=== PATIENT | male | born 1965 | race Hispanic/Latino ===

== ENCOUNTER 2022-06-14 06:56 | Day surgery (SDC) | payer OTHER, MEDICARE ==
[2022-06-12 13:00] LABS: BASOPHILS % (AUTO) 0.5 % (0.0-5.0); HEMATOCRIT 40.2 % (42-54); LYMPHOCYTES % (AUTO) 21.8 % (21.0-51.0); MEAN CORPUSCULAR HEMOGLOBIN 25.9 pg (27.0-33.0); MEAN CORPUSCULAR HGB CONC 32.3 g/dL (32.0-36.0); MEAN CORPUSCULAR VOLUME 80.1 fL (79-99); MONOCYTES % (AUTO) 9.8 % (3.0-13.0); NEUTROPHILS % (AUTO) 63.5 % (40.0-77.0); PLATELET COUNT (AUTO) 195 K/uL (130-400); RED BLOOD CELL COUNT(AUTO) 5.02 MIL/uL (4.50-6.20); RED CELL DISTRIBUTION WIDTH 15.6 % (11.0-15.5); WHITE BLOOD COUNT (AUTO) 7.8 K/uL (4.8-10.8)
[2022-06-12 13:08] LABS: CREATININE 1.5 mg/dL (0.5-1.5); POTASSIUM 5.2 mmol/L (3.5-5.1)
[2022-06-12 13:11] LABS: INR 0.95 (0.85-1.15); PROTHROMBIN TIME 10.4 SEC (9.6-11.6)
[2022-06-12 13:12] LABS: PARTIAL THROMBOPLASTIN TIME 27.1 SEC (26.3-35.5)
[2022-06-13 10:14] VITALS: BP 138/73
[2022-06-14] VITALS (7 sets, daily range): BP systolic 111–132; BP diastolic 66–77
[~2022-06-14] VITALS: Ht 177.8 cm; Wt 103.1 kg
[~2022-06-14 06:56] MED LIST: ATOR40TA71 PO; CARV12.511 PO; CHOL500050 PO; EMPA25TA PO; FERR-72 PO; FURO40TA5 PO; INSU100V12 SQ; LOSA25TA41 PO; NITR0.4T50 SL; SITA1TBM4 PO
[2022-06-14] MEDS ORDERED: 0.9% NACL 500ML IV.SOLN 500 ML IV ONE (07:52)
[2022-06-14] MEDS ORDERED: CEFAZOLIN SODIUM 2 GM VIAL IVPB PRN (08:00)
[2022-06-14] MEDS ORDERED: BUPIVACAINE/PF 0.25% 10ML VIAL IJ ONE (08:37)
[2022-06-14] MEDS ORDERED: CEFAZOLIN SODIUM 1 GM VIAL ONE (08:37)
[2022-06-14] MEDS ORDERED: IOHEXOL-350 50ML VIAL IV ONE (08:37)
[2022-06-14] MEDS ORDERED: MEPERIDINE-PF 25 MG/ML SYG ONE ×2 (08:37→09:12)
[2022-06-14] MEDS ORDERED: MIDAZOLAM HCL 1 MG/ML 2ML VIAL ONE ×4 (08:38→12:21)
[2022-06-14] MEDS ORDERED: LIDOCAINE HCL 1% MDV 50ML VIAL ONE (08:38)
[2022-06-14] MEDS ORDERED: ACETAMINOPHEN 500 MG TABLET PO PRN (11:00)
[2022-06-14] MEDS ORDERED: TRAM50TA4 PO (11:06)
== END 2022-06-14 15:10 | disposition home or self-care (01) ==
LOC: DAH 06:56
PROVIDERS: ATTEND Internal Medicine Cardiovascular Disease
DX: I25.5 Ischemic cardiomyopathy (principal); I45.10 Unspecified right bundle-branch block; E11.22 Type 2 diabetes mellitus with diabetic chronic kidney disease; I13.0 Hypertensive heart and chronic kidney disease with heart failure and stage 1 through stage 4 chronic kidney disease, or unspecified chronic kidney disease; N18.31 Chronic kidney disease, stage 3a; I50.42 Chronic combined systolic (congestive) and diastolic (congestive) heart failure; I25.2 Old myocardial infarction; E78.5 Hyperlipidemia, unspecified; M19.042 Primary osteoarthritis, left hand; M19.041 Primary osteoarthritis, right hand; Z79.82 Long term (current) use of aspirin; Z98.890 Other specified postprocedural states; Z79.01 Long term (current) use of anticoagulants
CPT/HCPCS: 80048; 85025; 85610; 85730; 36415; 93005; 33249; 82948 ×2; 71045; A4223 ×3; C1721; C1896; C1895; J7040; J0690; J2250 ×3; J3490 ×2; J2175 ×2; Q9967; A4215; A4222; A4221; A4663; A4216; A4606; 99156; 99157

== ENCOUNTER → 2024-03-19 | Outpatient (CLI) | payer MEDICARE, OTHER ==
[~2024-03-19] MED LIST changes: +TRAM50TA4 PO
== END | disposition home or self-care (01) ==
LOC: LAB 11:35
PROVIDERS: ATTEND Internal Medicine Cardiovascular Disease
DX: I25.5 Ischemic cardiomyopathy (principal)
CPT/HCPCS: 36415; 83880